=== PATIENT | male | born 1975 | race Caucasian/White ===

== ENCOUNTER 2016-06-17 17:08 | Emergency (ER) | payer OTHER ==
[~2016-06-17] VITALS: Ht 180.3 cm; Wt 66.0 kg
[~2016-06-17 17:08] MED LIST: Z.0.NO CURRENT MEDS
[2016-06-17 17:18] VITALS: BP 114/89; PULSE 83; RESP 16; TEMP 99; O2SAT 100
[2016-06-17] MEDS ORDERED: SODIUM CHLOR 0.9% 1000 ML INJ 1,000 ML IV SCH (17:47)
[2016-06-17] MEDS ORDERED: ONDANSETRON HCL 4 MG/2 ML VIAL IVP ONE (18:00)
[2016-06-17] MEDS ORDERED: MORPHINE SULFATE 4 MG/ML INJ IV PUSH ONE (18:00)
[2016-06-17] MEDS ORDERED: SODIUM CHLORIDE 0.9% FLUSH 5 ML FLUSH IVF PRN (18:00)
--- NOTE | 2016-06-17 18:06 | PD ---
HPI Chief Complaint: Complaint Time Seen by Provider: 17:43 Travel History International Travel<30 days: No Contact w/Intl Traveler<30days: No Traveled to known affect area: No History of Present Illness HPI 40-year-old male presents with right testicular pain and swelling. He denies any associated urinary symptoms or other complaints other than nausea. He also denies any trauma. He states his mother told him he had history of a hernia but he doesn't know what side as a child. He states the area of swelling has gotten a little bit better. Quality pain is sharp. Severity severe. Pain is worse with movement. He denies other modifying factors. Duration is about 4-5 days. PFSH Past Medical History Autoimmune Disease: No Blood Disorders: No Anxiety: No Depression: No Cancer: No Cardiovascular Problems: No Diabetes: No Genitourinary: No Headaches: Yes Musculoskeletal: Yes Psychiatric: No Respiratory: No Thyroid Disease: No Social History Alcohol Use: Yes (OCCASIONAL) Tobacco Use: Yes (PK A DAY) Substance Use: No Allergies-Medications (Allergen,Severity, Reaction): Coded Allergies: No Known Allergies (Verified , 06/17/16) Reported Meds & Prescriptions Reported Meds & Active Scripts Active No Active Prescriptions or Reported Medications Review of Systems Except as stated in HPI: all other systems reviewed are Neg Physical Exam Narrative GENERAL: Well-nourished, well-developed patient. Uncomfortable SKIN: Warm and dry. HEAD: Normocephalic and atraumatic. EYES: No injection or drainage. ENT: No nasal drainage noted. NECK: Supple, trachea midline. CARDIOVASCULAR: Regular rate and rhythm RESPIRATORY: No increased effort. No accessory muscle use. GASTROINTESTINAL: Abdomen soft, non-tender, nondistended. EXTREMITIES: No edema. 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 No lesions or erythema. No urethral discharge. Swelling noted to right testicle and very tender with movement, no large hernia noted but difficult exam given pain NEUROLOGICAL: Awake and alert. Motor and sensory grossly within normal limits. Normal speech. Data Data Last Documented VS Vital Signs Date Time Temp Pulse Resp B/P Pulse Ox O2 Delivery O2 Flow Rate FiO2 06/17/16 17:18 99.0 83 16 114/89 100 Orders Basic Metabolic Panel (Bmp) (06/17/16 17:47) Complete Blood Count With Diff (06/17/16 17:47) Urinalysis - C+S If Indicated (06/17/16 17:47) Iv Access Insert/Monitor (06/17/16 17:47) Ecg Monitoring (06/17/16 17:47) Oximetry (06/17/16 17:47) Morphine Inj (Morphine Inj) (06/17/16 18:00) Ondansetron Inj (Zofran Inj) (06/17/16 18:00) Sodium Chlor 0.9% 1000 Ml Inj (Ns 1000 M (06/17/16 17:47) Sodium Chloride 0.9% Flush (Ns Flush) (06/17/16 18:00) Us Testicles W Doppler (06/17/16 ) Labs Laboratory Tests Test 06/17/16 18:30 White Blood Count 8.4 TH/MM3 Red Blood Count 5.06 MIL/MM3 Hemoglobin 15.8 GM/DL Hematocrit 46.7 % Mean Corpuscular Volume 92.2 FL Mean Corpuscular Hemoglobin 31.1 PG Mean Corpuscular Hemoglobin 33.8 % Concent Red Cell Distribution Width 11.7 % Platelet Count 329 TH/MM3 Mean Platelet Volume 8.8 FL Neutrophils (%) (Auto) 68.6 % Lymphocytes (%) (Auto) 21.7 % Monocytes (%) (Auto) 6.4 % Eosinophils (%) (Auto) 1.9 % Basophils (%) (Auto) 1.4 % Neutrophils # (Auto) 5.8 TH/MM3 Lymphocytes # (Auto) 1.8 TH/MM3 Monocytes # (Auto) 0.5 TH/MM3 Eosinophils # (Auto) 0.2 TH/MM3 Basophils # (Auto) 0.1 TH/MM3 CBC Comment DIFF FINAL Differential Comment Urine Color YELLOW Urine Turbidity CLEAR Urine pH 6.5 Urine Specific [place] 1.018 Urine Protein NEG mg/dL Urine Glucose (UA) NEG mg/dL Urine Ketones NEG mg/dL Urine Occult Blood NEG Urine Nitrite NEG Urine Bilirubin NEG Urine Leukocyte Esterase NEG Urine RBC 0-2 /hpf Urine WBC 0-2 /hpf Urine Squamous Epithelial 0-5 /hpf Cells Urine Amorphous Sediment FEW Urine Bacteria NONE /hpf Microscopic Urinalysis Comment CULT NOT INDICATED Sodium Level 141 MEQ/L Potassium Level 3.9 MEQ/L Chloride Level 104 MEQ/L Carbon Dioxide Level 29.9 MEQ/L Anion Gap 7 MEQ/L Blood Urea Nitrogen 13 MG/DL Creatinine 0.87 MG/DL Estimat Glomerular Filtration 97 ML/MIN Rate Random Glucose 90 MG/DL Calcium Level 9.6 MG/DL MDM Medical Decision Making Medical Screen Exam Complete: Yes Emergency Medical Condition: Yes Medical Record Reviewed: Yes (past history confirm) Interpretation(s) CBC & BMP Diagram 06/17/16 18:30 Differential Diagnosis Epididymitis, orchitis, stone, hernia, UTI.... Narrative Course Will check blood work, urinalysis, testicular ultrasound and dose with pain medication and reevaluate Physician Communication Physician Communication dr cat to follow ultrasound and reeval Scripts No Active Prescriptions or Reported Meds Sadie Garza MD Jun 17, 2016 18:06
[2016-06-17 18:44] LABS: AUTOMATED NEUTROPHIL # 5.8 TH/MM3 (1.8-7.7); BASOPHIL # 0.1 TH/MM3 (0-0.2); BASOPHIL % 1.4 % (0.0-2.0); EOSINOPHIL # 0.2 TH/MM3 (0-0.4); EOSINOPHIL % 1.9 % (0.0-4.0); HEMATOCRIT 46.7 % (39.0-51.0); HEMO FLAGS DIFF FINAL; LYMPH % 21.7 % (9.0-44.0); LYMPHOCYTE # 1.8 TH/MM3 (1.0-4.8); MEAN CELL VOLUME 92.2 FL (80.0-100.0); MEAN CORPUSCULAR HEMOGLOBIN 31.1 PG (27.0-34.0); MEAN CORPUSCULAR HGB CONC 33.8 % (32.0-36.0); MONO % 6.4 % (0.0-8.0); NEUT % 68.6 % (16.0-70.0); PLATELET COUNT 329 TH/MM3 (150-450); RED BLOOD COUNT 5.06 MIL/MM3 (4.50-5.90); RED CELL DISTRIBUTION WIDTH 11.7 % (11.6-17.2); WHITE BLOOD COUNT 8.4 TH/MM3 (4.0-11.0)
[2016-06-17 18:45] LABS: BLOOD, URINE NEG (NEG); GLUCOSE,URINE NEG (NEG); KETONE, URINE NEG (NEG); NITRITE,URINE NEG (NEG); PH, URINE 6.5 (5.0-8.5)
[2016-06-17 18:52] LABS: URINE COLOR YELLOW (YELLW/STRAW)
[2016-06-17 18:54] LABS: COMMENT (UR) CULT NOT INDICATED; CULTURE IF INDICATED CULT NOT INDICATED; RBC, URINE 0-2 /hpf (0-3); SQUAMOUS EPITHELIAL CELL URINE 0-5 /hpf (0-5); WBC, URINE 0-2 /hpf (0-5)
[2016-06-17 18:58] LABS: POTASSIUM 3.9 MEQ/L (3.5-5.1)
[2016-06-17 19:01] LABS: BICARBONATE 29.9 MEQ/L (21.0-32.0)
[2016-06-17 19:20] VITALS: BP 110/77; PULSE 62; RESP 16; O2SAT 100
--- NOTE | 2016-06-17 19:25 | RADHPO ---
EXAM DATE/TIME: 06/17/2016 18:34 [facility] COMPARISON: No previous studies available for comparison. INDICATIONS : Swollen testicle. MEDICAL HISTORY : Right testicle pain and swelling. SURGICAL HISTORY : Left foot, ankle and knee surgery with pins and rods. ENCOUNTER: Initial ACUITY: 4 - 6 days PAIN SCORE: 7/10 LOCATION: Bilateral testicles. MEASUREMENTS: RIGHT TESTICLE: 5.3 x 3.4 x 2.3 cm LEFT TESTICLE: 5.4 x 3.2 x 1.9 cm FINDINGS: RIGHT TESTICLE: Homogeneous echotexture without intra or extratesticular mass. Small calcifications. Blood flow is sy mmetric and within normal limits. Small hydrocele and large varicocele. Epididymis is within normal limits. LEFT TESTICLE: Homogeneous echotexture without intra or extratesticular mass. Blood flow is symmetric and within no rmal limits. No hydrocele or varicocele. Epididymis contains a small cyst measuring 2 x 1 x 1 mm. SCROTUM: Within normal limits. CONCLUSION: 1. Small hydrocele and large varicocele on the right. 2. Left-sided small epididymal cyst versus spermatocele. 3. Testicular microlithiasis. Long-term surveillance may be warranted. Mansoor Najera MD on June 17, 2016 at 19:21 Board Certified Radiologist. This report was verified electronically.
[2016-06-17] MEDS ORDERED: KETOROLAC TROMETHAMINE 30 MG/ML (IVP) VIAL IV PUSH ONE (20:00)
[2016-06-17] MEDS ORDERED: IBUP-232 PO (20:06)
[2016-06-17] MEDS ORDERED: ULTR50TA5 PO (20:06)
--- NOTE | 2016-06-17 20:07 | PD ---
Physical Exam Date Seen by Provider: Jun 17, 2016 Time Seen by Provider: 19:59 Narrative Accepted in transfer of care from Dr. Garza GENERAL: Well-developed well-nourished male in no acute distress no respiratory distress SKIN: Warm and dry. GASTROINTESTINAL: Abdomen soft, non-tender, nondistended. : Circumcised male with bilaterally descended testicles positive testicular edema and swelling noted affecting the right testicle with tenderness to palpation positive cremasteric reflex no palpable hernia Data Data Last Documented VS Vital Signs Date Time Temp Pulse Resp B/P Pulse Ox O2 Delivery O2 Flow Rate FiO2 06/17/16 19:22 Room Air 06/17/16 19:20 62 16 110/77 100 06/17/16 17:18 99.0 Orders Basic Metabolic Panel (Bmp) (06/17/16 17:47) Complete Blood Count With Diff (06/17/16 17:47) Urinalysis - C+S If Indicated (06/17/16 17:47) Iv Access Insert/Monitor (06/17/16 17:47) Ecg Monitoring (06/17/16 17:47) Oximetry (06/17/16 17:47) Morphine Inj (Morphine Inj) (06/17/16 18:00) Ondansetron Inj (Zofran Inj) (06/17/16 18:00) Sodium Chlor 0.9% 1000 Ml Inj (Ns 1000 M (06/17/16 17:47) Sodium Chloride 0.9% Flush (Ns Flush) (06/17/16 18:00) Us Testicles W Doppler (06/17/16 ) Ketorolac Inj (Toradol Inj) (06/17/16 20:00) Labs Laboratory Tests Test 06/17/16 18:30 White Blood Count 8.4 TH/MM3 Red Blood Count 5.06 MIL/MM3 Hemoglobin 15.8 GM/DL Hematocrit 46.7 % Mean Corpuscular Volume 92.2 FL Mean Corpuscular Hemoglobin 31.1 PG Mean Corpuscular Hemoglobin 33.8 % Concent Red Cell Distribution Width 11.7 % Platelet Count 329 TH/MM3 Mean Platelet Volume 8.8 FL Neutrophils (%) (Auto) 68.6 % Lymphocytes (%) (Auto) 21.7 % Monocytes (%) (Auto) 6.4 % Eosinophils (%) (Auto) 1.9 % Basophils (%) (Auto) 1.4 % Neutrophils # (Auto) 5.8 TH/MM3 Lymphocytes # (Auto) 1.8 TH/MM3 Monocytes # (Auto) 0.5 TH/MM3 Eosinophils # (Auto) 0.2 TH/MM3 Basophils # (Auto) 0.1 TH/MM3 CBC Comment DIFF FINAL Differential Comment Urine Color YELLOW Urine Turbidity CLEAR Urine pH 6.5 Urine Specific [place] 1.018 Urine Protein NEG mg/dL Urine Glucose (UA) NEG mg/dL Urine Ketones NEG mg/dL Urine Occult Blood NEG Urine Nitrite NEG Urine Bilirubin NEG Urine Leukocyte Esterase NEG Urine RBC 0-2 /hpf Urine WBC 0-2 /hpf Urine Squamous Epithelial 0-5 /hpf Cells Urine Amorphous Sediment FEW Urine Bacteria NONE /hpf Microscopic Urinalysis Comment CULT NOT INDICATED Sodium Level 141 MEQ/L Potassium Level 3.9 MEQ/L Chloride Level 104 MEQ/L Carbon Dioxide Level 29.9 MEQ/L Anion Gap 7 MEQ/L Blood Urea Nitrogen 13 MG/DL Creatinine 0.87 MG/DL Estimat Glomerular Filtration 97 ML/MIN Rate Random Glucose 90 MG/DL Calcium Level 9.6 MG/DL [facility] Medical Record Reviewed: Yes Supervised Visit with SHELDON: No Interpretation(s) Laboratory Tests Test 06/17/16 18:30 White Blood Count 8.4 TH/MM3 Red Blood Count 5.06 MIL/MM3 Hemoglobin 15.8 GM/DL Hematocrit 46.7 % Mean Corpuscular Volume 92.2 FL Mean Corpuscular Hemoglobin 31.1 PG Mean Corpuscular Hemoglobin 33.8 % Concent Red Cell Distribution Width 11.7 % Platelet Count 329 TH/MM3 Mean Platelet Volume 8.8 FL Neutrophils (%) (Auto) 68.6 % Lymphocytes (%) (Auto) 21.7 % Monocytes (%) (Auto) 6.4 % Eosinophils (%) (Auto) 1.9 % Basophils (%) (Auto) 1.4 % Neutrophils # (Auto) 5.8 TH/MM3 Lymphocytes # (Auto) 1.8 TH/MM3 Monocytes # (Auto) 0.5 TH/MM3 Eosinophils # (Auto) 0.2 TH/MM3 Basophils # (Auto) 0.1 TH/MM3 CBC Comment DIFF FINAL Differential Comment Urine Color YELLOW Urine Turbidity CLEAR Urine pH 6.5 Urine Specific [place] 1.018 Urine Protein NEG mg/dL Urine Glucose (UA) NEG mg/dL Urine Ketones NEG mg/dL Urine Occult Blood NEG Urine Nitrite NEG Urine Bilirubin NEG Urine Leukocyte Esterase NEG Urine RBC 0-2 /hpf Urine WBC 0-2 /hpf Urine Squamous Epithelial 0-5 /hpf Cells Urine Amorphous Sediment FEW Urine Bacteria NONE /hpf Microscopic Urinalysis Comment CULT NOT INDICATED Sodium Level 141 MEQ/L Potassium Level 3.9 MEQ/L Chloride Level 104 MEQ/L Carbon Dioxide Level 29.9 MEQ/L Anion Gap 7 MEQ/L Blood Urea Nitrogen 13 MG/DL Creatinine 0.87 MG/DL Estimat Glomerular Filtration 97 ML/MIN Rate Random Glucose 90 MG/DL Calcium Level 9.6 MG/DL Last Impressions Scrotum Ultrasound 06/17/16 0000 Signed Impressions: Service Date/Time: Friday, June 17, 2016 18:34 - CONCLUSION: 1. Small hydrocele and large varicocele on the right. 2. Left-sided small epididymal cyst versus spermatocele. 3. Testicular microlithiasis. Long-term surveillance may be warranted. Mansoor Najera MD Differential Diagnosis please refer to Dr Garza's dictation Narrative Course Accepted in transfer of care from Dr. Garza for pending ultrasound and patient disposition; VS wnl and labs wnl. Ultrasound resulted and identified to have good blood flow to both testicles there is testicular swelling with hydrocele and varicocele affecting the right testicle. No epididymal inflammation identified. No mass. Patient informed of ultrasound results complains that area still remains tender although improved from when he arrived also size testicle has decreased since yesterday. No palpable identifiable inguinal hernia. Patient declines CT imaging. Patient given additional dose of pain medication and anti- inflammatory Toradol IV. Mandatory referral to urology has been entered as a referral ordered. Diagnosis Primary Impression: Right varicocele Referrals: Urologist 1 day call in AM for appointment; on-call MD Dr Anderson Patient Instructions: General Instructions Departure Forms: Tests/Procedures, Work Release Special Instructions: no work x 2 days Additional Instruction: Rest take medications as prescribed as needed follow up with Urologist; medical professionals urologist Dr Anderson follow up with your primary care physician return to the ED for any concerns Monitor temperature for fever and take as needed acetaminophen/Tylenol every 4 hours for fever 100.4F or greater Med/Other Pt SpecificInfo: Prescription(s) given Scripts Tramadol (Ultram)50 Mg Tab50 Mg PO Q6H PRN (PAIN GREATER THAN 6) #10 TAB Ref 0 Prov:Mariah Adkins MD 06/17/16 Ibuprofen 600 Mg Jpx006 Mg PO Q6H PRN (Pain/Inflammation) #12 TAB Ref 0 Prov:Mariah Adkins MD 06/17/16 Disposition: 01 DISCHARGE HOME Condition: Stable Mariah Adkins MD Jun 17, 2016 20:07
[2016-06-17 20:20] VITALS: BP 127/85; PULSE 66; RESP 18; O2SAT 99
== END 2016-06-17 21:07 | disposition home or self-care (01) ==
LOC: PHED 17:08
DX: N50.811 Right testicular pain (principal); I86.1 Scrotal varices; F17.210 Nicotine dependence, cigarettes, uncomplicated
CPT/HCPCS: 76870; 80048; 81001; 85025; 93975; 96361; 96374; 96375; 99284; J1885; J2270; J2405; J7030

== ENCOUNTER 2016-06-20 12:54 | Emergency (ER) | payer OTHER ==
[~2016-06-20] VITALS: Ht 180.3 cm; Wt 71.0 kg
[~2016-06-20 12:54] MED LIST changes: +IBUP-232 PO; +ULTR50TA5 PO; -Z.0.NO CURRENT MEDS
[2016-06-20 12:57] VITALS: BP 132/90; PULSE 74; RESP 20; TEMP 98.1; O2SAT 97
[2016-06-20] MEDS ORDERED: MORPHINE SULFATE 4 MG/ML INJ IV PUSH ONE (14:00)
[2016-06-20] MEDS ORDERED: ONDANSETRON HCL 4 MG/2 ML VIAL IV PUSH ONE (14:00)
[2016-06-20] MEDS ORDERED: SODIUM CHLOR 0.9% 1000 ML INJ 1,000 ML IV ONE (14:00)
[2016-06-20 14:21] LABS: AUTOMATED NEUTROPHIL # 5.5 TH/MM3 (1.8-7.7); BASOPHIL % 0.4 % (0.0-2.0); EOSINOPHIL # 0.2 TH/MM3 (0-0.4); EOSINOPHIL % 2.8 % (0.0-4.0); HEMATOCRIT 42.1 % (39.0-51.0); HEMO FLAGS DIFF FINAL; LYMPH % 21.5 % (9.0-44.0); LYMPHOCYTE # 1.8 TH/MM3 (1.0-4.8); MEAN CELL VOLUME 92.2 FL (80.0-100.0); MEAN CORPUSCULAR HEMOGLOBIN 31.9 PG (27.0-34.0); MEAN CORPUSCULAR HGB CONC 34.6 % (32.0-36.0); MONO % 9.2 % (0.0-8.0); NEUT % 66.1 % (16.0-70.0); PLATELET COUNT 331 TH/MM3 (150-450); RED BLOOD COUNT 4.56 MIL/MM3 (4.50-5.90); RED CELL DISTRIBUTION WIDTH 12.5 % (11.6-17.2); WHITE BLOOD COUNT 8.3 TH/MM3 (4.0-11.0)
[2016-06-20 14:44] LABS: ALKALINE PHOSPHATASE 64 U/L (45-117); ALT (GPT) 30 U/L (12-78); ANION GAP 5 MEQ/L (5-15); AST (GOT) 23 U/L (15-37); BICARBONATE 30.6 MEQ/L (21.0-32.0); BLOOD UREA NITROGEN 16 MG/DL (7-18); CHLORIDE 103 MEQ/L (98-107); GLOMERULAR FILTRATION RATE 99 ML/MIN (>89); POTASSIUM 4.6 MEQ/L (3.5-5.1); SODIUM (NA) 139 MEQ/L (136-145); TOTAL BILIRUBIN ADULT 0.5 MG/DL (0.2-1.0)
[2016-06-20 15:00] VITALS: BP 125/79; PULSE 76; RESP 16; O2SAT 97
[2016-06-20 17:00] VITALS: BP 119/84; PULSE 72; RESP 16; O2SAT 97
--- NOTE | 2016-06-20 17:51 | RADRPT ---
EXAM DATE/TIME: 06/20/2016 16:48 [facility] COMPARISON: No previous studies available for comparison. INDICATIONS : Flank pain. MEDICAL HISTORY : Flank pain. Right testicular pain. SURGICAL HISTORY : Left foot, ankle and knee surgery with pins and rods. ENCOUNTER: Initial ACUITY: 1 week PAIN SCORE: 6/10 LOCATION: Bilateral flank MEASUREMENTS: RIGHT KIDNEY: 12.4 x 5.9 x 4.6 cm LEFT KIDNEY: 12.0 x 4.6 x 6.2 cm FINDINGS: RIGHT KIDNEY: Renal cortex is normal in thickness and echotexture. No hydronephrosis, stone, or mass. LEFT KIDNEY: Renal cortex is normal in thickness and echotexture. No hydronephrosis, stone, or mass. BLADDER: Within normal limits given the degree of distension. Prostatic calcifications are seen. CONCLUSION: No acute disease. Jorge Villanueva MD on June 20, 2016 at 17:47 Board Certified Radiologist. This report was verified electronically.
--- NOTE | 2016-06-20 18:52 | PD ---
HPI Chief Complaint: Complaint Time Seen by Provider: 13:36 Travel History International Travel<30 days: No Contact w/Intl Traveler<30days: No Traveled to known affect area: No History of Present Illness HPI Patient is a 40 year old male who comes in for an ultrasound of his kidneys. He was diagnosed with a right sided varicole of his testicles and went to follow up with urology yesterday. He was told he needed an ultrasound to rule out a renal mass as right-sided varicoceles are uncommon. He is still having some pain to his testicles, but says that the swelling and pain seemed to be less today. He was seen in [place] on , and followed up with urology. He has been taking tramadol for pain. He denies any fever or chills. He denies any abdominal pain. He denies any nausea or vomiting. PFSH Past Medical History Autoimmune Disease: No Blood Disorders: No Anxiety: No Depression: No Cancer: No Cardiovascular Problems: No Diabetes: No Gastrointestinal Disorders: No Genitourinary: No Headaches: Yes Musculoskeletal: Yes Psychiatric: No Respiratory: No Thyroid Disease: No Tetanus Vaccination: > 5 Years Influenza Vaccination: No Past Surgical History Other Surgery: Yes Social History Alcohol Use: Yes (6 pack of beer most days) Tobacco Use: Yes (< 1 PPD) Substance Use: No Allergies-Medications (Allergen,Severity, Reaction): Coded Allergies: No Known Allergies (Verified , 06/20/16) Reported Meds & Prescriptions Reported Meds & Active Scripts Active Ultram (Tramadol HCl) 50 Mg Tab 50 Mg PO Q6H PRN Ibuprofen 600 Mg Tab 600 Mg PO Q6H PRN Review of Systems Except as stated in HPI: all other systems reviewed are Neg General / Constitutional: No: Fever, Chills HENT: No: Headaches, Lightheadedness Cardiovascular: No: Chest Pain or Discomfort Respiratory: No: Shortness of Breath Gastrointestinal: No: Nausea, Vomiting Genitourinary: Positive: Other (testicular pain) Skin: No Rash, No Itching Neurologic: No: Weakness, Dizziness Physical Exam Narrative GENERAL: Awake and alert in no acute distress. SKIN: Warm and dry. HEAD: Atraumatic. Normocephalic. EYES: Pupils equal and round. No scleral icterus. ENT: No nasal bleeding or discharge. Mucous membranes pink and moist. NECK: Trachea midline. No JVD. CARDIOVASCULAR: Regular rate and rhythm. No murmur appreciated. RESPIRATORY: No accessory muscle use. Clear to auscultation. Breath sounds equal bilaterally. GASTROINTESTINAL: Abdomen soft, non-tender, nondistended. NEUROLOGICAL: Awake and alert. No obvious cranial nerve deficits. Motor grossly within normal limits. Normal speech. PSYCHIATRIC: Appropriate mood and affect; insight and judgment normal. Data Data Last Documented VS Vital Signs Date Time Temp Pulse Resp B/P Pulse Ox O2 Delivery O2 Flow Rate FiO2 06/20/16 19:00 74 16 124/72 97 Room Air 06/20/16 12:57 98.1 Orders Complete Blood Count With Diff (06/20/16 13:55) Comprehensive Metabolic Panel (06/20/16 13:55) Sodium Chlor 0.9% 1000 Ml Inj (Ns 1000 M (06/20/16 14:00) Ondansetron Inj (Zofran Inj) (06/20/16 14:00) Morphine Inj (Morphine Inj) (06/20/16 14:00) Us Kidney/Renal/Bladder (06/20/16 ) Labs Laboratory Tests Test 06/20/16 14:00 White Blood Count 8.3 TH/MM3 Red Blood Count 4.56 MIL/MM3 Hemoglobin 14.6 GM/DL Hematocrit 42.1 % Mean Corpuscular Volume 92.2 FL Mean Corpuscular Hemoglobin 31.9 PG Mean Corpuscular Hemoglobin 34.6 % Concent Red Cell Distribution Width 12.5 % Platelet Count 331 TH/MM3 Mean Platelet Volume 8.8 FL Neutrophils (%) (Auto) 66.1 % Lymphocytes (%) (Auto) 21.5 % Monocytes (%) (Auto) 9.2 % Eosinophils (%) (Auto) 2.8 % Basophils (%) (Auto) 0.4 % Neutrophils # (Auto) 5.5 TH/MM3 Lymphocytes # (Auto) 1.8 TH/MM3 Monocytes # (Auto) 0.8 TH/MM3 Eosinophils # (Auto) 0.2 TH/MM3 Basophils # (Auto) 0.0 TH/MM3 CBC Comment DIFF FINAL Differential Comment Sodium Level 139 MEQ/L Potassium Level 4.6 MEQ/L Chloride Level 103 MEQ/L Carbon Dioxide Level 30.6 MEQ/L Anion Gap 5 MEQ/L Blood Urea Nitrogen 16 MG/DL Creatinine 0.85 MG/DL Estimat Glomerular Filtration 99 ML/MIN Rate Random Glucose 81 MG/DL Calcium Level 8.9 MG/DL Total Bilirubin 0.5 MG/DL Aspartate Amino Transf 23 U/L (AST/SGOT) Alanine Aminotransferase 30 U/L (ALT/SGPT) Alkaline Phosphatase 64 U/L Total Protein 7.2 GM/DL Albumin 3.7 GM/DL MDM Medical Decision Making Medical Screen Exam Complete: Yes Emergency Medical Condition: Yes Medical Record Reviewed: Yes Differential Diagnosis Renal mass versus testicular varicocele versus encounter for pain medicine Narrative Course Patient is a 40-year-old male comes in in need of a ultrasound of his kidneys. Exam shows no abdominal tenderness. I spoke with Dr. Monica richard from urology who says patient just needs an ultrasound to rule out a renal mass. Labs sent show no acute abnormalities. Patient given morphine for pain. Ultrasound performed shows no acute abnormalities. Patient given results and told to follow-up with urology. Advised to return to the ED as needed for any worsening symptoms. Diagnosis Primary Impression: Right varicocele Patient Instructions: General Instructions, Varicocele (ED) Additional Instructions: Take your pain medicine as needed. Follow up with urology. Return to the ED as needed for any worsening symptoms. Disposition: 01 DISCHARGE HOME Condition: Stable (ERASED) Brooklynn Reich MD Jun 20, 2016 18:52
[2016-06-20 19:00] VITALS: BP 124/72; PULSE 74; RESP 16; O2SAT 97
== END 2016-06-20 19:07 | disposition home or self-care (01) ==
LOC: NEPA 12:54
DX: I86.1 Scrotal varices (principal); F17.210 Nicotine dependence, cigarettes, uncomplicated
CPT/HCPCS: 76775; 80053; 85025; 96361; 96374; 96375; 99284; J2270; J2405; J7030

== ENCOUNTER → 2016-06-26 | Outpatient (CLI) | payer SELFPAY ==
[~2016-06-26] MED LIST changes: +CEPH-460 PO; +HYDR-3533 PO; +ZOFR4TAB3 SL
--- NOTE | 2016-06-26 19:53 | RADRPT ---
EXAM DATE/TIME: 06/26/2016 15:32 [facility] COMPARISON : INDICATIONS : Evaluate varicocele for possible treatment. HISTORY OF PRESENT ILLNESS: 40-year-old gentleman with right sided testicular pain. IMAGING STUDIES: Ultrasound of the testicles June 17, 2016 from [facility] was reviewed. These images r eveal a right unilateral varicocele. ASSESSMENT: Right unilateral varicocele. PLAN: CT scan of the abdomen and pelvis with IV contrast is needed to assess for any signs of retroperitone al adenopathy or mass in this patient with a right unilateral varicocele. This must be excluded as it is atypical to have a right unilateral varicocele without left-sided involvement. The CT will also a id in identifying the location of the right gonadal vein. TIME SPENT: 15 minutes Ahmet Bryant Jr., MD on June 26, 2016 at 19:47 Board Certified Radiologist. This report was verified electronically.
== END ==
LOC: HRAD 15:24
PROVIDERS: ATTEND Urology
DX: E86.1 Hypovolemia (principal)

== ENCOUNTER 2016-07-08 08:38 | Day surgery (SDC) | payer OTHER ==
[~2016-07-08] VITALS: Ht 180.3 cm; Wt 70.5 kg
[~2016-07-08 08:38] MED LIST changes: -CEPH-460 PO; -HYDR-3533 PO; -ZOFR4TAB3 SL
[2016-07-08 08:56] VITALS: BP 132/82; PULSE 77; RESP 20; TEMP 97.7; O2SAT 99
[2016-07-08] MEDS ORDERED: SODIUM CHLOR 0.9% 1000 ML INJ 1,000 ML IV SCH (09:00)
[2016-07-08 09:34] LABS: AUTOMATED NEUTROPHIL # 6.3 TH/MM3 (1.8-7.7); BASOPHIL # 0.1 TH/MM3 (0-0.2); BASOPHIL % 0.7 % (0.0-2.0); EOSINOPHIL # 0.3 TH/MM3 (0-0.4); EOSINOPHIL % 3.1 % (0.0-4.0); HEMATOCRIT 43.7 % (39.0-51.0); HEMO FLAGS DIFF FINAL; LYMPH % 18.6 % (9.0-44.0); LYMPHOCYTE # 1.7 TH/MM3 (1.0-4.8); MEAN CELL VOLUME 91.8 FL (80.0-100.0); MEAN CORPUSCULAR HEMOGLOBIN 32.7 PG (27.0-34.0); MEAN CORPUSCULAR HGB CONC 35.6 % (32.0-36.0); MONO % 7.4 % (0.0-8.0); NEUT % 70.2 % (16.0-70.0); PLATELET COUNT 270 TH/MM3 (150-450); RED BLOOD COUNT 4.76 MIL/MM3 (4.50-5.90); RED CELL DISTRIBUTION WIDTH 12.8 % (11.6-17.2)
[2016-07-08 09:38] LABS: APTT (PATIENT) 28.4 SEC (24.3-30.1); PROTHROMBIN TIME - PATIENT 10.6 SEC (9.8-11.6)
[2016-07-08 09:42] LABS: BICARBONATE 25.9 MEQ/L (21.0-32.0); POTASSIUM 4.1 MEQ/L (3.5-5.1)
[2016-07-08] MEDS ORDERED: fentaNYL CITRATE 250 MCG/5 ML AMP ONE (11:23)
[2016-07-08] MEDS ORDERED: MIDAZOLAM HCL 5 MG/5 ML VIAL ONE (11:23)
[2016-07-08] MEDS ORDERED: HYDROmorphone HCL PF 2 MG/ML VIAL ONE (12:05)
[2016-07-08] MEDS ORDERED: IOHEXOL 350 MG/ML 100 ML BTL (for RAD DIAG) IV ONE (13:02)
[2016-07-08 13:05] VITALS: BP 117/80; PULSE 62; RESP 18; TEMP 97.8; O2SAT 92
[2016-07-08 13:20] VITALS: BP 120/76; PULSE 72; RESP 16; O2SAT 93
[2016-07-08 13:50] VITALS: BP 115/75; PULSE 58; RESP 18; O2SAT 96
[2016-07-08 14:20] VITALS: BP 114/58; PULSE 60; RESP 18; O2SAT 96
[2016-07-08 14:50] VITALS: BP 110/70; PULSE 67; RESP 18; O2SAT 98
--- NOTE | 2016-07-09 09:32 | RADRPT ---
EXAM DATE/TIME: 07/08/2016 11:23 [facility] COMPARISON: No previous studies available for comparison. INDICATIONS : Right sided varicole of his testicles. MEDICAL HISTORY : 1. Headaches 2. Smoker 3. PTSD 4. Right testicular pain SURGICAL HISTORY : 1. Lt foot and ankle surgery 2. hernia repair ENCOUNTER: Initial ACUITY: 1 month PAIN SCORE: 8/10 LOCATION: Right groin FLUORO TIME: 17 minutes ACCESS SITE: Left Femoral vein SEDATION TIME: 75 minutes CONTRAST: 1.) 130 cc Omnipaque (iohexol) 350 MEDICATION(S): 1.) 4 mg midazolam (Versed) IV 2.) 250 mcg fentanyl (Sublimaze) IV 3.) 2 mg hydromorphone (Dilaudid) IV PROCEDURE : 1. Ultrasound-guided puncture of the left femoral vein. 2. Conscious sedation with continuous EKG and Oximetry monitoring. 3. Angiography of the inferior vena cava 4. Angiography of the right renal vein The risks, benefits and alternatives to the procedure were explained and verbal and written consent w as obtained. The site was prepped in sterile fashion. Full sterile technique was used, including ca p, mask, sterile gloves and gown and a large sterile sheet. Hand hygiene and 2% chlorhexidine and/or betadine/alcohol prep was utilized per protocol for cutaneous antisepsis. The skin and subcutaneous tissues were infiltrated with local anesthetic solution. With ultrasound and fluoroscopic guidance the left femoral vein was punctured and a vascular sheath w as placed. Angiography of the inferior vena cava was performed to identify the gonadal vein. It cannot be identi fied. The inferior vena cava was probed along the expected course of the vessel and no access could b e obtained. Right renal vein was evaluated to identify anomalous origin. This could not be identified . The puncture site was closed with manual pressure and hemostasis was obtained. The patient tolerated the procedure well and there were no complications. Conscious sedation was performed with the prescribed dosages and duration as above. EKG and oximetry remained stable throughout the procedure. CONCLUSION: 1. Right gonadal vein could not be identified and no intervention was performed Pancho Sandhu MD on July 09, 2016 at 9:29 Board Certified Radiologist. This report was verified electronically.
== END 2016-07-08 15:25 | disposition home or self-care (01) ==
LOC: HROP 08:38 → HRIP 08:38 → HROP 15:25
PROVIDERS: ATTEND Urology
DX: I86.1 Scrotal varices (principal); F43.10 Post-traumatic stress disorder, unspecified
CPT/HCPCS: 36010; 75825; 75831; 76937; 80048; 85025; 85610; 85730; 99152; 99153; C1769; C1887; C1894; J1170; J2250; J3010; Q9967

== ENCOUNTER 2016-08-08 03:59 | Emergency (ER) | payer SELFPAY ==
[~2016-08-08] VITALS: Ht 180.3 cm; Wt 64.0 kg
[2016-08-08] MEDS ORDERED: SODIUM CHLOR 0.9% 1000 ML INJ 1,000 ML IV SCH (04:45)
[2016-08-08] MEDS ORDERED: ONDANSETRON HCL 4 MG/2 ML VIAL IV ONE (04:45)
[2016-08-08] MEDS ORDERED: HYDROmorphone HCL PF 1 MG/ML VIAL IV PUSH ONE (04:45)
--- NOTE | 2016-08-08 05:02 | PD ---
HPI Chief Complaint: GI Complaint Time Seen by Provider: 04:23 Travel History International Travel<30 days: No Contact w/Intl Traveler<30days: No Traveled to known affect area: No History of Present Illness HPI Is a 40-year-old man who presents to the emergency department complaint of nausea vomiting and left flank pain, as well as right groin pain. Patient had a surgical treatment of the varicocele by Dr. Cuba on July 30, 9 days ago. He was doing well until today he started to develop nausea and vomiting, chills and sweats, with pain in the left flank, and as she had more vomiting worsening severe pain in the right groin. He otherwise had been feeling generally well and healthy prior to this. He's had some left flank pain intermittently in the past, but nothing ever this severe. He otherwise had been feeling no history of kidney stones. No history of abdominal surgery. No other complaints. History Past Medical History Medical History: Denies Significant Hx Social History Alcohol Use: Yes (6 pack of beer most days) Tobacco Use: Yes (< 1 PPD) Allergies-Medications (Allergen,Severity, Reaction): Coded Allergies: No Known Allergies (Verified , 06/20/16) Reported Meds & Prescriptions Reported Meds & Active Scripts Active No Active Prescriptions or Reported Medications Review of Systems Except as stated in HPI: all other systems reviewed are Neg Physical Exam Narrative GENERAL: 40-year-old man, looks miserable, diaphoretic, vomiting. SKIN: Warm and diaphoretic. HEAD: Atraumatic. Normocephalic. EYES: Pupils equal and round. No scleral icterus. No injection or drainage. ENT: No nasal bleeding or discharge. Mucous membranes pink and moist. NECK: Trachea midline. No JVD. CARDIOVASCULAR: Regular rate and rhythm. No murmur appreciated. RESPIRATORY: No accessory muscle use. Clear to auscultation. Breath sounds equal bilaterally. GASTROINTESTINAL: Abdomen is flat and soft. Guards the right inguinal area, but no significant tenderness in the abdomen itself. : Right inguinal incision is fairly tender. There is no obvious swelling of the groin or genitals or scrotum. He complains of testicular tenderness. MUSCULOSKELETAL: No obvious deformities. No edema. NEUROLOGICAL: Awake and alert. No obvious cranial nerve deficits. Motor grossly within normal limits. Normal speech. PSYCHIATRIC: Appropriate mood and affect; insight and judgment normal. Data Data Orders Complete Blood Count With Diff (08/08/16 04:35) Comprehensive Metabolic Panel (08/08/16 04:35) Ua Includes Microscopic (08/08/16 04:35) Iv Access Insert/Monitor (08/08/16 04:35) Influenzae A/B Antigen (08/08/16 04:35) Sodium Chlor 0.9% 1000 Ml Inj (Ns 1000 M (08/08/16 04:45) Ondansetron Inj (Zofran Inj) (08/08/16 04:45) Hydromorphone Pf Inj (Dilaudid Pf Inj) (08/08/16 04:45) Ct Abd/Pel W/O Iv Contrast (08/08/16 ) Labs Laboratory Tests Test 08/08/16 08/08/16 04:50 04:55 White Blood Count 11.6 TH/MM3 Red Blood Count 4.98 MIL/MM3 Hemoglobin 15.2 GM/DL Hematocrit 45.2 % Mean Corpuscular Volume 90.7 FL Mean Corpuscular Hemoglobin 30.6 PG Mean Corpuscular Hemoglobin 33.7 % Concent Red Cell Distribution Width 11.8 % Platelet Count 352 TH/MM3 Mean Platelet Volume 9.1 FL Neutrophils (%) (Auto) 77.2 % Lymphocytes (%) (Auto) 13.8 % Monocytes (%) (Auto) 6.7 % Eosinophils (%) (Auto) 2.1 % Basophils (%) (Auto) 0.2 % Neutrophils # (Auto) 9.0 TH/MM3 Lymphocytes # (Auto) 1.6 TH/MM3 Monocytes # (Auto) 0.8 TH/MM3 Eosinophils # (Auto) 0.2 TH/MM3 Basophils # (Auto) 0.0 TH/MM3 CBC Comment DIFF FINAL Differential Comment Sodium Level 141 MEQ/L Potassium Level 3.9 MEQ/L Chloride Level 103 MEQ/L Carbon Dioxide Level 29.5 MEQ/L Anion Gap 9 MEQ/L Blood Urea Nitrogen 14 MG/DL Creatinine 0.76 MG/DL Estimat Glomerular Filtration 113 ML/MIN Rate Random Glucose 101 MG/DL Calcium Level 9.0 MG/DL Total Bilirubin 0.5 MG/DL Aspartate Amino Transf 18 U/L (AST/SGOT) Alanine Aminotransferase 39 U/L (ALT/SGPT) Alkaline Phosphatase 60 U/L Total Protein 8.0 GM/DL Albumin 4.2 GM/DL Urine Collection Type CLEAN CATCH Urine Color YELLOW Urine Turbidity CLEAR Urine pH 6.5 Urine Specific [place] 1.016 Urine Protein NEG mg/dL Urine Glucose (UA) NEG mg/dL Urine Ketones NEG mg/dL Urine Occult Blood NEG Urine Nitrite NEG Urine Bilirubin NEG Urine Leukocyte Esterase NEG Urine WBC 0-2 /hpf Urine Amorphous Sediment RARE Urine Mucus MOD /lpf Microscopic Urinalysis Comment MDM Medical Decision Making Medical Screen Exam Complete: Yes Emergency Medical Condition: Yes Interpretation(s) LABS: CBC remarkable for mild leukocytosis. CMP is unremarkable. UA is unremarkable. CT abdomen and pelvis: No evidence of calcified renal stones or hydronephrosis. Focal induration and the lower anterior right abdominal pelvic CT is tissues and multiple collections of gas and soft tissue suggesting possible subcutaneous abscess. No drainable collection seen. Differential Diagnosis Influenza, adverse effect to medication, obstruction, renal lithiasis, other Narrative Course Medical decision making INITIAL: 40-year-old male with nausea vomiting chills and sweats with left flank pain as well as severe right groin pain following surgery. The right groin pain and could conceivably be from the vomiting. He is very tender in that area. I don't see any evidence of hernia or obstruction. We'll check labs , check influenza, if negative will check CT for renal stone. Reassess. FINAL: All his initial studies workups unremarkable. CT scan shows some small subcutaneous gas bubbles and induration in the surgical site. There is no evidence of erythema redness or drainage at this point from the surgical site. I don't active infection there. I spoke with Dr. payne right the CT findings. She has appointment to follow-up with the office, recommend antibiotics Diagnosis Primary Impression: Abdominal pain Qualified Code: R10.84 - Generalized abdominal pain Additional Impression: Vomiting Qualified Code: R11.2 - Non-intractable vomiting with nausea, unspecified vomiting type Additional Instructions: Take Zofran as needed for nausea or vomiting. Take Lortab as needed for pain. Take Keflex as prescribed. Follow-up with Dr. payne as planned. Return to the emergency department for any worsening abdominal pain, vomiting, or any other new or worsening symptoms. Med/Other Pt SpecificInfo: Prescription(s) given Scripts Cephalexin (Keflex)500 Mg [id number] Mg PO Q8H 7 Days Ref 0 Prov:Dany Prakash MD 08/08/16 Ondansetron Odt (Zofran Odt)4 Mg Tab4 Mg SL Q8HR PRN (Nausea/Vomiting) #15 TAB May substitute non-ODT form. Prov:Dany Prakash MD 08/08/16 Hydrocodone-Acetaminophen (Lortab)5-325 Mg Tab1-2 Tab PO Q6H PRN (PAIN) #12 TAB Prov:Dany Prakash MD 08/08/16 Disposition: 01 DISCHARGE HOME Condition: Stable Dany Prakash MD Aug 08, 2016 05:02
[2016-08-08 05:14] LABS: BASOPHIL % 0.2 % (0.0-2.0); EOSINOPHIL # 0.2 TH/MM3 (0-0.4); EOSINOPHIL % 2.1 % (0.0-4.0); HEMATOCRIT 45.2 % (39.0-51.0); HEMO FLAGS DIFF FINAL; LYMPH % 13.8 % (9.0-44.0); LYMPHOCYTE # 1.6 TH/MM3 (1.0-4.8); MEAN CELL VOLUME 90.7 FL (80.0-100.0); MEAN CORPUSCULAR HEMOGLOBIN 30.6 PG (27.0-34.0); MEAN CORPUSCULAR HGB CONC 33.7 % (32.0-36.0); MONO % 6.7 % (0.0-8.0); NEUT % 77.2 % (16.0-70.0); PLATELET COUNT 352 TH/MM3 (150-450); RED BLOOD COUNT 4.98 MIL/MM3 (4.50-5.90); RED CELL DISTRIBUTION WIDTH 11.8 % (11.6-17.2); WHITE BLOOD COUNT 11.6 TH/MM3 (4.0-11.0)
[2016-08-08 05:21] LABS: BLOOD, URINE NEG (NEG); GLUCOSE,URINE NEG (NEG); KETONE, URINE NEG (NEG); NITRITE,URINE NEG (NEG); PH, URINE 6.5 (5.0-8.5)
[2016-08-08 05:25] LABS: CHLORIDE 103 MEQ/L (98-107); POTASSIUM 3.9 MEQ/L (3.5-5.1); SODIUM (NA) 141 MEQ/L (136-145)
[2016-08-08 05:29] LABS: ANION GAP 9 MEQ/L (5-15); BICARBONATE 29.5 MEQ/L (21.0-32.0); BLOOD UREA NITROGEN 14 MG/DL (7-18)
[2016-08-08 05:32] LABS: ALT (GPT) 39 U/L (12-78); AST (GOT) 18 U/L (15-37); GLOMERULAR FILTRATION RATE 113 ML/MIN (>89)
[2016-08-08 05:33] LABS: TOTAL BILIRUBIN ADULT 0.5 MG/DL (0.2-1.0)
[2016-08-08 05:33] LABS: METHOD OF COLLECTION CLEAN CATCH; URINE COLOR YELLOW (YELLW/STRAW)
[2016-08-08 05:34] LABS: MUCUS URINE MOD /lpf (OCC)
[2016-08-08 05:35] LABS: ALKALINE PHOSPHATASE 60 U/L (45-117)
[2016-08-08 05:35] LABS: WBC, URINE 0-2 /hpf (0-5)
--- NOTE | 2016-08-08 06:18 | RADHPO ---
EXAM DATE/TIME: 08/08/2016 05:49 [facility] COMPARISON: No previous studies available for comparison. INDICATIONS : Left sided flank pain with nausea and vomiting. ORAL CONTRAST: No oral contrast ingested. RADIATION DOSE: 7.22 CTDIvol (mGy) MEDICAL HISTORY : None SURGICAL HISTORY : Varicocele repair. ENCOUNTER: Initial ACUITY: 1 day PAIN SCALE: 7/10 LOCATION: Left flank TECHNIQUE: Volumetric scanning of the abdomen and pelvis was performed. Using automated exposure control and ad justment of the mA and/or kV according to patient size, radiation dose was kept as low as reasonably achievable to obtain optimal diagnostic quality images. FINDINGS: No calcified stones in the collecting system of either kidney. No evidence hydronephrosis. Both ure ters are normal in diameter. No calcifications along the course of either ureter. Urinary bladder m argins are smooth. No calcification within the lumen of urinary bladder. There is focal subcutaneous soft tissue induration in the lower right abdominal pelvic wall and multi ple focal collections of gas in the subcutaneous tissues. No evidence of free fluid in the pelvis. No evidence of free intraperitoneal gas. Loops of small and large bowel are normal in dimension. The liver, spleen, adrenal glands are unremarkable for noncontrast technique. No calcified gallstone s. The osseous structures are grossly intact. CONCLUSION: 1. No evidence of calcified renal stones or hydronephrosis. 2. Focal induration of the lower anterior right abdominal pelvic subcutaneous tissues and multiple co llections of gas in the soft tissues suggest possible subcutaneous abscess. No drainable fluid colle ctions seen. Recommend correlation with clinical exam. Ahmet Angulo MD on August 08, 2016 at 6:12 Board Certified Radiologist. This report was verified electronically.
[2016-08-08] MEDS ORDERED: CEPH-460 PO (06:37)
[2016-08-08] MEDS ORDERED: ZOFR4TAB3 SL (06:37)
[2016-08-08] MEDS ORDERED: HYDR-3533 PO (06:37)
[2016-08-08 07:01] VITALS: BP 99/68; PULSE 73; RESP 18; O2SAT 97
== END 2016-08-08 07:14 | disposition home or self-care (01) ==
LOC: PHED 03:59
DX: R10.84 Generalized abdominal pain (principal); R11.2 Nausea with vomiting, unspecified; F17.210 Nicotine dependence, cigarettes, uncomplicated; F10.10 Alcohol abuse, uncomplicated
CPT/HCPCS: 74176; 80053; 81001; 85025; 87804; 96361; 96374; 96375; 99284; J1170; J2405; J7030

== ENCOUNTER 2017-06-25 11:36 | Emergency (ER) | payer SELFPAY ==
[~2017-06-25] VITALS: Ht 180.3 cm; Wt 64.0 kg
[~2017-06-25 11:36] MED LIST changes: +CEPH-460 PO; +HYDR-3533 PO; -IBUP-232 PO; -ULTR50TA5 PO; +ZOFR4TAB3 SL
[2017-06-25 11:50] VITALS: BP 159/95; PULSE 95; RESP 16; TEMP 97.9; O2SAT 100
[2017-06-25] MEDS ORDERED: SODIUM CHLORIDE 0.9% FLUSH 10 ML FLUSH IVF PRN (12:00)
[2017-06-25] MEDS ORDERED: KETOROLAC TROMETHAMINE 30 MG/ML (IVP) VIAL IV PUSH ONE (12:00)
[2017-06-25] MEDS ORDERED: MORPHINE SULFATE 4 MG/ML INJ IV PUSH ONE (12:00)
[2017-06-25] MEDS ORDERED: ONDANSETRON HCL 4 MG/2 ML VIAL IV PUSH ONE (12:00)
--- NOTE | 2017-06-25 12:02 | PD ---
HPI Chief Complaint: testicle pain Time Seen by Provider: 11:47 Travel History International Travel<30 days: No Contact w/Intl Traveler<30days: No Traveled to known affect area: No History of Present Illness HPI This patient complains of right testicle pain and swelling. Duration 2 days. Symptoms are severe. No injury. No fever. He has history of right sided varicocele requiring operative intervention. This was one year ago. He's been doing fine after his surgery until 2 days ago. No dysuria. No hematuria. No alleviating factors. No Exacerbating factors. PFSH Past Medical History Autoimmune Disease: No Blood Disorders: No Anxiety: No Depression: No Cancer: No Cardiovascular Problems: No Diabetes: No Endocrine: No Gastrointestinal Disorders: No Genitourinary: No Headaches: Yes Hepatitis: No Hiatal Hernia: No Hypertension: No Immune Disorder: No Musculoskeletal: Yes (arthritis) Neurologic: No Psychiatric: No Reproductive: No Respiratory: No Thyroid Disease: No Past Surgical History Other Surgery: Yes Social History Alcohol Use: Yes (6 pack of beer most days) Tobacco Use: Yes (< 1 PPD) Substance Use: No Allergies-Medications (Allergen,Severity, Reaction): Coded Allergies: No Known Allergies (Verified , 06/20/16) Reported Meds & Prescriptions Reported Meds & Active Scripts Active Percocet (Oxycodone-Acetaminophen) 5-325 mg Tab 1 Tab PO Q6H PRN Review of Systems General / Constitutional: No: Fever Eyes: No: Visual changes HENT: No: Headaches Cardiovascular: No: Chest Pain or Discomfort Respiratory: No: Shortness of Breath Gastrointestinal: No: Abdominal Pain Genitourinary: No: Dysuria Musculoskeletal: Positive: Pain Skin: No Rash Neurologic: No: Weakness Psychiatric: No: Depression Endocrine: No: Polydipsia Hematologic/Lymphatic: No: Easy Bruising Physical Exam Narrative GENERAL: Well-nourished, well-developed patient with testicle pain . SKIN: Focused skin assessment reveals no rash and nodules. Skin is Warm and dry. HEAD: Atraumatic. Normocephalic. EYES: Pupils equal and round. No scleral icterus. No injection or drainage. ENT: No nasal bleeding or discharge. Mucous membranes pink and moist. NECK: Trachea midline. No JVD. CARDIOVASCULAR: Regular rate and rhythm. No murmur appreciated. RESPIRATORY: No accessory muscle use. Clear to auscultation. Breath sounds equal bilaterally. GASTROINTESTINAL: Abdomen soft, non-tender, nondistended. Hepatic and splenic margins not palpable. MUSCULOSKELETAL: No obvious deformities. No clubbing. No cyanosis. No edema. NEUROLOGICAL: Awake and alert. No obvious cranial nerve deficits. Motor grossly within normal limits. Normal speech. PSYCHIATRIC: Appropriate mood and affect; insight and judgment normal. : Patient has enlarged tender right testicle. Circumcised penis without drainage. Left testicle is nontender. Data Data Last Documented VS Vital Signs Date Time Temp Pulse Resp B/P (MAP) Pulse Ox O2 Delivery O2 Flow Rate FiO2 06/25/17 11:50 97.9 95 16 159/95 (116) 100 Orders Orders Complete Blood Count With Diff (06/25/17 11:54) Basic Metabolic Panel (Bmp) (06/25/17 11:54) Urinalysis - C+S If Indicated (06/25/17 11:54) Iv Access Insert/Monitor (06/25/17 11:54) Ketorolac Inj (Toradol Inj) (06/25/17 12:00) Morphine Inj (Morphine Inj) (06/25/17 12:00) Ondansetron Inj (Zofran Inj) (06/25/17 12:00) Sodium Chloride 0.9% Flush (Ns Flush) (06/25/17 12:00) Us Testicles W Doppler (06/25/17 ) Labs Laboratory Tests Test 06/25/17 11:59 06/25/17 13:44 White Blood Count 8.5 TH/MM3 Red Blood Count 4.73 MIL/MM3 Hemoglobin 14.7 GM/DL Hematocrit 43.0 % Mean Corpuscular Volume 90.9 FL Mean Corpuscular Hemoglobin 31.0 PG Mean Corpuscular Hemoglobin Concent 34.1 % Red Cell Distribution Width 12.4 % Platelet Count 253 TH/MM3 Mean Platelet Volume 8.9 FL Neutrophils (%) (Auto) 73.1 % Lymphocytes (%) (Auto) 15.0 % Monocytes (%) (Auto) 10.0 % Eosinophils (%) (Auto) 1.2 % Basophils (%) (Auto) 0.7 % Neutrophils # (Auto) 6.1 TH/MM3 Lymphocytes # (Auto) 1.3 TH/MM3 Monocytes # (Auto) 0.9 TH/MM3 Eosinophils # (Auto) 0.1 TH/MM3 Basophils # (Auto) 0.1 TH/MM3 CBC Comment DIFF FINAL Differential Comment Blood Urea Nitrogen 16 MG/DL Creatinine 0.72 MG/DL Random Glucose 134 MG/DL Calcium Level 8.6 MG/DL Sodium Level 136 MEQ/L Potassium Level 3.9 MEQ/L Chloride Level 103 MEQ/L Carbon Dioxide Level 26.4 MEQ/L Anion Gap 7 MEQ/L Estimat Glomerular Filtration Rate 120 ML/MIN Urine Color YELLOW Urine Turbidity CLEAR Urine pH 7.0 Urine Specific [place] 1.016 Urine Protein NEG mg/dL Urine Glucose (UA) NEG mg/dL Urine Ketones NEG mg/dL Urine Occult Blood NEG Urine Nitrite NEG Urine Bilirubin NEG Urine Leukocyte Esterase NEG Urine Squamous Epithelial Cells 0-5 /hpf Urine Amorphous Sediment SMALL Urine Mucus OCC /lpf Microscopic Urinalysis Comment CULT NOT INDICATED MDM Medical Decision Making Medical Screen Exam Complete: Yes Emergency Medical Condition: Yes Medical Record Reviewed: Yes Differential Diagnosis Varicocele, torsion, epididymitis Narrative Course I have reviewed the patient's electronic medical record. I reviewed His evaluation from one year ago IV placed CBC is normal Metabolic profile is normal I gave him a dose of morphine and Zofran and Toradol for symptom relief Ultrasound of the testicles ordered with Doppler Urinalysis is clean Ultrasound shows a large right hydrocele. I reviewed the results in detail with his urologist Dr. [place]. He recommends outpatient follow-up Wrote him some Percocet and recommend scrotal support Diagnosis Primary Impression: Right hydrocele Additional Impression: Testicular pain, right Additional Instructions: The patient was advised to follow up with their physician and return if they worsen. The patient was warned about potential sedation for the medications they will receive on prescription. Med/Other Pt SpecificInfo: Prescription(s) given Scripts Oxycodone-Acetaminophen (Percocet) 5-325 mg Tab 1 TAB PO Q6H Y for PAIN, #20 TAB 0 Refills Prov: Riley Patterson MD 06/25/17 Disposition: 01 DISCHARGE HOME Condition: Stable Riley Patterson MD Jun 25, 2017 12:02
[2017-06-25 12:09] LABS: AUTOMATED NEUTROPHIL # 6.1 TH/MM3 (1.8-7.7); BASOPHIL # 0.1 TH/MM3 (0-0.2); BASOPHIL % 0.7 % (0.0-2.0); EOSINOPHIL # 0.1 TH/MM3 (0-0.4); EOSINOPHIL % 1.2 % (0.0-4.0); HEMOGLOBIN 14.7 GM/DL (13.0-17.0); LYMPHOCYTE # 1.3 TH/MM3 (1.0-4.8); MEAN CELL VOLUME 90.9 FL (80.0-100.0); MEAN CORPUSCULAR HGB CONC 34.1 % (32.0-36.0); MEAN PLATELET VOLUME 8.9 FL (7.0-11.0); MONOCYTE # 0.9 TH/MM3 (0-0.9); NEUT % 73.1 % (16.0-70.0); PLATELET COUNT 253 TH/MM3 (150-450); RED BLOOD COUNT 4.73 MIL/MM3 (4.50-5.90); RED CELL DISTRIBUTION WIDTH 12.4 % (11.6-17.2); WHITE BLOOD COUNT 8.5 TH/MM3 (4.0-11.0)
[2017-06-25 12:20] LABS: CALCIUM 8.6 MG/DL (8.5-10.1)
[2017-06-25 12:21] LABS: BICARBONATE 26.4 MEQ/L (21.0-32.0)
[2017-06-25 12:24] LABS: CREATININE 0.72 MG/DL (0.60-1.30)
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
[2017-06-25 13:55] LABS: BILIRUBIN, URINE NEG (NEG); BLOOD, URINE NEG (NEG); GLUCOSE,URINE NEG (NEG); KETONE, URINE NEG (NEG); NITRITE,URINE NEG (NEG); URINE LEUKOCYTE ESTERASE NEG (NEG)
[2017-06-25 14:20] LABS: URINE COLOR YELLOW (YELLW/STRAW)
[2017-06-25 14:22] LABS: AMORPHOUS SEDIMENT, URINE SMALL; MUCUS URINE OCC /lpf (OCC); SQUAMOUS EPITHELIAL CELL URINE 0-5 /hpf (0-5)
[2017-06-25] MEDS ORDERED: PERC5TAB12 PO (15:24)
[2017-06-25 15:59] VITALS: BP 134/68; PULSE 82; RESP 16; O2SAT 98
== END 2017-06-25 16:07 | disposition home or self-care (01) ==
LOC: PHED 11:36
DX: N43.3 Hydrocele, unspecified (principal); N50.811 Right testicular pain; M19.90 Unspecified osteoarthritis, unspecified site; F17.210 Nicotine dependence, cigarettes, uncomplicated
CPT/HCPCS: 76870; 80048; 81001; 85025; 93975; 96374; 96375; 99284; J1885; J2270; J2405